=== PATIENT | female | born 1975 | race Caucasian/White ===

== ENCOUNTER → 2019-05-18 15:09 | Outpatient (BNVA) | payer MEDICAID, SELFPAY | PROVIDERS: Family Provider Nurse Practitioner Family; PCP Nurse Practitioner Family; Visit Provider Nurse Practitioner Family | DX: I10 Essential (primary) hypertension (principal); Z23 Encounter for immunization; F41.9 Anxiety disorder, unspecified | CPT/HCPCS: 80053; 80061; 84443; 85025 ==

== ENCOUNTER → 2019-06-30 08:01 | Outpatient (BNVA) | payer MEDICAID, SELFPAY | PROVIDERS: Family Provider Nurse Practitioner Family; PCP Nurse Practitioner Family; Visit Provider Nurse Practitioner | DX: Z01.89 Encounter for other specified special examinations (principal) | CPT/HCPCS: 88175 ==